=== PATIENT | female | born 1990 | race Two or more races ===

== ENCOUNTER 2021-09-26 22:42 | Emergency (ER) | payer OTHER ==
[~2021-09-26] VITALS: Ht 149.9 cm; Wt 40.9 kg
[2021-09-26] MEDS ORDERED: SERT-158 PO (22:49)
[2021-09-26 23:06] LABS: BASOPHILS % (AUTO) 0.3 % (0.0-2.0); EOSINOPHILS % (AUTO) 0.9 % (1.0-6.0); HEMATOCRIT 40.1 % (36-46); HEMOGLOBIN 13.7 g/dL (12.0-16.0); LYMPHOCYTES # (AUTO) 2.6 K/uL (1.0-4.8); LYMPHOCYTES % (AUTO) 38.7 % (22.0-44.0); MEAN CORPUSCULAR HEMOGLOBIN 31.6 pg (26.0-34.0); MEAN CORPUSCULAR HGB CONC 34.1 G/dL (31.0-37.0); MEAN CORPUSCULAR VOLUME 93 fL (80-100); MONOCYTES # (AUTO) 0.3 K/uL (0.1-1.0); MONOCYTES % (AUTO) 4.7 % (2.0-9.0); NEUTROPHILS # (AUTO) 3.7 K/uL (1.8-7.7); NEUTROPHILS % (AUTO) 55.4 % (40.0-70.0); PLATELET COUNT (AUTO) 260 K/uL (150-450); RED BLOOD CELL COUNT(AUTO) 4.32 MIL/uL (4.00-5.20); RED CELL DISTRIBUTION WIDTH 12.3 % (11.5-14.5)
[2021-09-26 23:24] LABS: ANION GAP 10 mmol/L (8-16); CALCIUM, TOTAL 8.8 mg/dL (8.8-10.5); CARBON DIOXIDE 28 mmol/L (22-29); CHLORIDE 101 mmol/L (98-107); CREATININE 0.68 mg/dL (0.60-1.30); GLOMERULAR FILTR. RATE CALC > 60 mL/min (>60); GLUCOSE,RANDOM 78 mg/dL (70-110); POTASSIUM 3.1 mmol/L (3.5-5.1); SODIUM SERUM 139 mmol/L (136-145); UREA NITROGEN, BLOOD 14 mg/dL (7-18)
[2021-09-26] MEDS ORDERED: LORazepam 1 MG TABLET PO ONE (23:30)
[2021-09-26 23:36] LABS: ALANINE AMINOTRANSFERASE 11 U/L (12-78); ALKALINE PHOSPHATASE 73 U/L (46-116); ASPARTATE AMINOTRANSFERASE 16 U/L (15-37); BILIRUBIN,TOTAL 0.6 mg/dL (0.1-1.0); HCG,QUANTITATIVE < 1 mIU/mL (0-6); TOTAL PROTEIN, SERUM 7.3 g/dL (6.4-8.2)
[2021-09-26 23:54] LABS: COVID AG,FIA SOURCE NASAL SWAB
[2021-09-27] MEDS ORDERED: POTASSIUM CHLORIDE 20 MEQ ER TABLET PO ONE (00:30)
[2021-09-27 06:09] VITALS: BP 120/82
[2021-09-27 06:14] LABS: AMPHET/METH SCREEN,URINE POSITIVE (NEGATIVE); BARBITURATE SCREEN, URINE NEGATIVE (NEGATIVE); BENZODIAZEPINES SCREEN,URINE NEGATIVE (NEGATIVE); CANNABINOID SCREEN,URINE NEGATIVE (NEGATIVE); COCAINE SCREEN,URINE NEGATIVE (NEGATIVE); METHADONE SCREEN, URINE NEGATIVE (NEGATIVE); OPIATE SCREEN,URINE NEGATIVE (NEGATIVE)
[2021-09-27 06:18] LABS: PHENCYCLIDINE SCREEN,URINE NEGATIVE (NEGATIVE)
== END 2021-09-27 06:58 | disposition short-term general hospital (02) ==
LOC: EMS 22:44
DX: F32.9 Major depressive disorder, single episode, unspecified (principal); F12.90 Cannabis use, unspecified, uncomplicated; F17.210 Nicotine dependence, cigarettes, uncomplicated; Z79.899 Other long term (current) drug therapy; Z20.822 Contact with and (suspected) exposure to COVID-19
CPT/HCPCS: 36415; 80053; 80307; 84702; 85025; 87426; 99285; G0480

== ENCOUNTER 2024-08-21 06:25 | Emergency (ER) | payer OTHER ==
[~2024-08-21] VITALS: Ht 162.6 cm; Wt 56.8 kg
[~2024-08-21 06:25] MED LIST: SERT-158 PO
[2024-08-21 06:26] VITALS: BP 132/70; PULSE 102; RESP 16; TEMP 98.2; O2SAT 100
[2024-08-21] MEDS: ACETAMINOPHEN 500 MG TABLET PO ONE (07:36)
[2024-08-21] MEDS ORDERED: GABA-1216 PO (18:50)
[2024-08-21] MEDS ORDERED: ACET-66 PO (18:50)
[2024-08-21] MEDS ORDERED: CEPH-558 PO (18:50)
[2024-08-21] MEDS ORDERED: PHEN-674 PO (18:50)
== END 2024-08-21 07:45 | disposition home or self-care (01) ==
LOC: EMS 06:26
DX: F41.9 Anxiety disorder, unspecified (principal); F32.A Depression, unspecified; F17.200 Nicotine dependence, unspecified, uncomplicated; F12.90 Cannabis use, unspecified, uncomplicated; Z59.819 Housing instability, housed unspecified; Z79.899 Other long term (current) drug therapy
CPT/HCPCS: 99282; 99283

== ENCOUNTER 2024-08-21 18:05 | Emergency (ER) | payer OTHER ==
[~2024-08-21] VITALS: Ht 154.9 cm; Wt 54.5 kg
[2024-08-21 18:14] VITALS: BP 107/69; PULSE 111; RESP 18; TEMP 97.9; O2SAT 98
[2024-08-21 18:34] LABS: APPEARANCE,URINE HAZY (CLEAR); BILIRUBIN,URINE NEGATIVE (NEGATIVE); COLOR,URINE YELLOW (YELLOW); GLUCOSE, URINE (UA) NEGATIVE (NEGATIVE); KETONES,URINE 40-60 mg/dL (NEGATIVE); LEUKOCYTE ESTERASE ,URINE LARGE (NEGATIVE); NITRATE,URINE POSITIVE (NEGATIVE); OCCULT BLOOD,URINE TRACE (NEGATIVE); PROTEIN,URINE 30-70 mg/dL (NEGATIVE); SPECIFIC GRAVITIY, URINE 1.034 (1.003-1.030)
[2024-08-21] MEDS ORDERED: PHEN-674 PO (18:50)
[2024-08-21] MEDS ORDERED: ACET-66 PO (18:50)
[2024-08-21] MEDS ORDERED: GABA-1216 PO (18:50)
[2024-08-21] MEDS ORDERED: CEPH-558 PO (18:50)
[2024-08-21 18:56] LABS: BACTERIA,URINE Many /HPF (None Seen); SQUAMOUS EPITHELIAL CELL,UR Few /LPF (None Seen); WBC,URINE 26-50 /HPF (0-5)
[2024-08-21] MEDS: ACETAMINOPHEN 325 MG TABLET PO ONE (19:02)
[2024-08-21] MEDS: GABAPENTIN 100 MG CAPSULE PO ONE (19:03)
[2024-08-21] MEDS: PHENAZOPYRIDINE HCL 100 MG TABLET PO ONE (19:03)
[2024-08-21] MEDS: CEPHALEXIN MONOHYDRATE 500 MG CAPSULE PO ONE (19:04)
== END 2024-08-21 19:05 | disposition home or self-care (01) ==
LOC: EMS 18:05
DX: N39.0 Urinary tract infection, site not specified (principal); F41.9 Anxiety disorder, unspecified; F32.A Depression, unspecified; F12.90 Cannabis use, unspecified, uncomplicated; F17.210 Nicotine dependence, cigarettes, uncomplicated; F15.90 Other stimulant use, unspecified, uncomplicated; Z79.899 Other long term (current) drug therapy
CPT/HCPCS: 81001; 87077; 87086; 87186; 99284; Z7502; Z7610